=== PATIENT | female | born 2000 | race Caucasian/White ===

== ENCOUNTER 2021-04-24 19:27 | Emergency (ER) | payer OTHER ==
[2021-04-24 19:35] VITALS: BMI 36.7
[2021-04-24 20:25] VITALS: BP 122/74; PULSE 85; TEMP 98.5
== END 2021-04-24 22:06 | disposition home or self-care (01) ==
LOC: JER 19:27 → JDEL 19:27 → JER 22:06
DX: O36.8131 Decreased fetal movements, third trimester, fetus 1 (principal); O09.293 Supervision of pregnancy with other poor reproductive or obstetric history, third trimester; Z3A.29 29 weeks gestation of pregnancy
CPT/HCPCS: 76819-TC

== ENCOUNTER 2021-06-01 13:37 | Emergency (ER) | payer BC, OTHER ==
[2021-06-01 13:45] VITALS: BMI 37.2
[2021-06-01 15:27] LABS: BASO % 0.3 % (0-2.0); EOS % 1.1 % (0-4.5); HEMOGLOBIN 11.5 GM/dL (10.7-15.3); LYMPH % 17.2 % (8-40); MEAN CELL VOLUME 85.4 fl (80-96); MEAN PLT VOLUME 9.1 fl (7.5-11.1); MONO % 10.1 % (3.8-10.2); NEUT % 71.3 % (42.8-82.8); PLATELET COUNT 235 10^3/uL (134-434); RBC 3.98 M/mm3 (3.60-5.2); RDW 16.9 % (11.6-15.6); WHITE BLOOD COUNT 10.9 K/mm3 (4.0-10.0)
[2021-06-01 15:46] LABS: INR 0.93 (0.83-1.09); PROTHROMBIN TIME (PATIENT) 11.5 SEC (9.7-13.0)
[2021-06-01 15:49] LABS: ACTIVATED PTT 26.5 SECONDS (25.2-36.5)
[2021-06-01 15:53] LABS: CHLORIDE 110 mmol/L (98-107); SODIUM 139 mmol/L (136-145)
[2021-06-01 15:55] LABS: CALCIUM 8.5 mg/dL (8.5-10.1)
[2021-06-01 15:56] LABS: ALBUMIN 2.4 g/dl (3.4-5.0); ANION GAP 10 MMOL/L (8-16); BLOOD UREA NITROGEN 6.5 mg/dL (7-18); CO2 19 mmol/L (21-32); GLUCOSE,RANDOM 100 mg/dL (74-106); MAGNESIUM 1.9 mg/dL (1.8-2.4)
[2021-06-01 15:59] LABS: CREATININE 0.6 mg/dL (0.55-1.3); SGOT/AST 30 U/L (15-37); SGPT/ALT 47 U/L (13-61)
[2021-06-01 16:00] LABS: BILIRUBIN,TOTAL 0.2 mg/dL (0.2-1); TOT PROT 6.3 g/dl (6.4-8.2)
[2021-06-01 16:01] LABS: ALK PHOS 256 U/L (45-117)
[2021-06-01 23:02] VITALS: BP 115/58; PULSE 79; TEMP 98.1
== END 2021-06-01 22:56 | disposition home or self-care (01) ==
LOC: JER 13:37
DX: R00.2 Palpitations (principal)
CPT/HCPCS: 36415; 71275-TC; 80053; 83735; 84443; 84484; 85025; 85379; 85610; 85730; 93005; 93010; 93970-TC; 99285-25; Q9967

== ENCOUNTER 2021-06-29 15:15 | Inpatient (IN) | payer BC ==
[2021-06-29] MEDS ORDERED: BUTORPHANOL TARTRATE 1 MG/ML VIAL IVPB ONE (16:31)
[2021-06-29] MEDS ORDERED: PROMETHAZINE HCL 25 MG/1 ML VIAL IVPUSH ONE (16:31)
[2021-06-29] MEDS ORDERED: DINOPROSTONE 10 MG VAGINAL SUPPOSITORY VG ONE (16:36)
[2021-06-29 16:39] VITALS: BMI 37.2
[2021-06-29 17:25] LABS: BASO % 0.4 % (0-2.0); EOS % 0.5 % (0-4.5); HEMATOCRIT 34.1 % (32.4-45.2); HEMOGLOBIN 11.4 GM/dL (10.7-15.3); LYMPH % 20.6 % (8-40); MCH 28.7 pg (25.7-33.7); MCHC 33.4 g/dl (32.0-36.0); MEAN CELL VOLUME 85.8 fl (80-96); MEAN PLT VOLUME 9.6 fl (7.5-11.1); MONO % 9.2 % (3.8-10.2); NEUT % 69.3 % (42.8-82.8); PLATELET COUNT 199 10^3/uL (134-434); RBC 3.97 M/mm3 (3.60-5.2); RDW 17.3 % (11.6-15.6); WHITE BLOOD COUNT 9.8 K/mm3 (4.0-10.0)
[2021-06-29 17:32] LABS: INR 0.92 (0.83-1.09); PROTHROMBIN TIME (PATIENT) 11.4 SEC (9.7-13.0)
[2021-06-29 17:35] LABS: ACTIVATED PTT 26.6 SECONDS (25.2-36.5)
[2021-06-29 17:45] LABS: CALCIUM 8.7 mg/dL (8.5-10.1)
[2021-06-29 17:46] LABS: BLOOD UREA NITROGEN 7.2 mg/dL (7-18)
[2021-06-29 17:49] LABS: CREATININE 0.7 mg/dL (0.55-1.3)
[2021-06-29] MEDS: DEXTROSE 5%-LACTATED RINGERS 1,000 ML IV SCH (22:05)
[2021-06-30] MEDS ORDERED: SODIUM PHOSPHATE/NA BIPHOS 133 ML ENEMA PR ONE (05:49)
[2021-06-30] MEDS ORDERED: OXYTOCIN 30 UNITS in 0.9% NS 30 UNIT/500 ML INFUS.BAG IVPB SCH (06:15)
[2021-06-30] MEDS ORDERED: OXYTOCIN 30 UNITS in 0.9% NS 30 UNIT/500 ML INFUS.BAG IVPB ONE (06:36)
[2021-06-30] MEDS: DEXTROSE 5%-LACTATED RINGERS 1,000 ML IV SCH ×3 (06:40→20:30)
[2021-06-30] MEDS ORDERED: BUTORPHANOL TARTRATE 2 MG/ML VIAL ONE (09:58)
[2021-06-30] MEDS ORDERED: PROMETHAZINE HCL 25 MG/1 ML VIAL ONE (09:58)
[2021-06-30] MEDS ORDERED: PCA PUMP NR ONE ×2 (14:14→20:48)
[2021-06-30] MEDS ORDERED: FENTANYL/BUPIVACAINE/NS/PF - PCEA - 50 ML DISP.SYRIN EP ONE ×3 (14:14→20:49)
[2021-06-30] MEDS: FENTANYL/BUPIVACAINE/NS/PF - PCEA - 50 ML DISP.SYRIN EP SCH ×2 (14:30→18:30)
[2021-06-30] MEDS ORDERED: NALOXONE HCL 0.4 MG/ML VIAL IVPUSH PRN (15:26)
[2021-06-30] MEDS ORDERED: OXYTOCIN 20 UNITS in 0.9% NS 20 UNIT/1,000 ML INFUS.BAG IV ONE (22:32)
[2021-06-30] MEDS ORDERED: LIDOCAINE HCL 1% PRESERVATIVE FREE - 30ML VIAL ONE (22:32)
[2021-07-01] MEDS ORDERED: BISACODYL 10 MG SUPP.RECT RC PRN (00:12)
[2021-07-01] MEDS ORDERED: ACETAMINOPHEN 325 MG TABLET (FP) PO PRN (00:12)
[2021-07-01] MEDS ORDERED: BENZOCAINE 28 GM HEMORRHOIDAL OINTMENT TP PRN (00:12)
[2021-07-01] MEDS ORDERED: WITCH HAZEL 50% (TUCKS) 40 PAD/JAR PAD TP PRN (00:12)
[2021-07-01] MEDS ORDERED: BENZOCAINE 20% 57 GM BOTTLE TP PRN (00:12)
[2021-07-01] MEDS ORDERED: METHYLERGONOVINE MALEATE 0.2 MG/1 ML AMP IM PRN (00:12)
[2021-07-01] MEDS ORDERED: OXYTOCIN 20 UNITS in 0.9% NS 20 UNIT/1,000 ML INFUS.BAG IV SCH (00:15)
[2021-07-01] MEDS ORDERED: ACETAMINOPHEN 325 MG TABLET (FP) ONE (00:33)
[2021-07-01] MEDS ORDERED: IBUPROFEN 600 MG TABLET (FP) PO ONE (00:33)
[2021-07-01] MEDS: IBUPROFEN 600 MG TABLET (FP) PO PRN ×3 (00:35→23:35)
[2021-07-01] MEDS: PRENATAL VITAMINS W/ FOLIC ACID TABLET (FP) PO SCH (10:02)
[2021-07-02] MEDS: PRENATAL VITAMINS W/ FOLIC ACID TABLET (FP) PO SCH (09:59)
[2021-07-02 10:30] LABS: BASO % 0.2 % (0-2.0); EOS % 0.8 % (0-4.5); HEMATOCRIT 31.2 % (32.4-45.2); HEMOGLOBIN 10.5 GM/dL (10.7-15.3); LYMPH % 13.8 % (8-40); MCH 29.2 pg (25.7-33.7); MCHC 33.8 g/dl (32.0-36.0); MEAN CELL VOLUME 86.4 fl (80-96); MONO % 6.6 % (3.8-10.2); NEUT % 78.6 % (42.8-82.8); PLATELET COUNT 204 10^3/uL (134-434); RBC 3.61 M/mm3 (3.60-5.2); RDW 17.5 % (11.6-15.6); WHITE BLOOD COUNT 13.7 K/mm3 (4.0-10.0)
[2021-07-02 10:57] VITALS: BP 137/72; PULSE 92; TEMP 98.6
[2021-07-02] MEDS ORDERED: SENNOSIDES/DOCUSATE COMBO (SENNA PLUS) TABLET (UD) PO PRN (22:00)
== END 2021-07-02 12:00 | disposition home or self-care (01) | DRG 807 ==
LOC: JLDR 15:15 → J3W 07-01 01:52
PROVIDERS: ADMIT Obstetrics & Gynecology; ATTEND Obstetrics & Gynecology
PROC: 10H07YZ Insertion of Other Device into Products of Conception, Via Natural or Artificial Opening (ICD-10-PCS; 2021-06-30)
PROC: 3E033VJ Introduction of Other Hormone into Peripheral Vein, Percutaneous Approach (ICD-10-PCS; 2021-06-30)
PROC: 3E0P7VZ Introduction of Hormone into Female Reproductive, Via Natural or Artificial Opening (ICD-10-PCS; 2021-06-30)
PROC: 10E0XZZ Delivery of Products of Conception, External Approach (ICD-10-PCS; principal; 2021-07-01)
PROC: 0KQM0ZZ Repair Perineum Muscle, Open Approach (ICD-10-PCS; 2021-07-01)
PROC: 0W8NXZZ Division of Female Perineum, External Approach (ICD-10-PCS; 2021-07-01)
DX: O70.1 Second degree perineal laceration during delivery (principal); Z37.0 Single live birth; O99.214 Obesity complicating childbirth; E66.9 Obesity, unspecified; O09.293 Supervision of pregnancy with other poor reproductive or obstetric history, third trimester; Z3A.38 38 weeks gestation of pregnancy
CPT/HCPCS: 36415; 59409; 80048; 85025; 85610; 85730; 86780; 86850; 86900; 86901; 87340